=== PATIENT | female | born 1935 | race Caucasian/White ===

== ENCOUNTER 2016-06-10 16:12 | Inpatient (IN) | payer MEDICARE, OTHER ==
[~2016-06-10] VITALS: Ht 152.4 cm; Wt 66.5 kg
--- NOTE | ~2016-06-10 | OR ---
ADMIT: 06/25/2016 RM/LOC: 531 [facility] MR#: [id number] [facility]#: [id number] [address] [address] NELSON BONILLA [address] [place] [address] Operative/Delivery Room Report SEX: F AGE: 81 : 1935 SURGERY DATE: 06/25/2016 SURGEON: Jason Young MD PREOPERATIVE DIAGNOSIS: Right knee degenerative joint disease. POSTOPERATIVE DIAGNOSIS: Right knee degenerative joint disease. PROCEDURE PERFORMED: Right knee total knee arthroplasty with a Flaquito and Flaquito system, size 3 posterior stabilized femoral component, size 2.5 tibial tray, 8 mm tibial insert, and size 32 patellar button. PHARMACY COORDINATOR: 1. Chip Schaefer PA-C. 2. MARYELLEN Muller. ANESTHESIA: Spinal. ESTIMATED BLOOD LOSS: Minimal. FLUIDS: Per anesthetic record. COMPLICATIONS: No complications. DRAIN: One drain. TOURNIQUET TIME: 48 minutes. CONDITION: The patient returned to the recovery room in fair condition. INDICATION: The patient has been having right knee pain refractory to nonoperative treatment due to DJD of her knee. She desired total knee arthroplasty. She understood the risks and benefits of the procedure and desire to proceed. DESCRIPTION OF THE PROCEDURE: The patient was taken to the OR, transferred to the OR table with spinal placed. She was laid in the supine position. All bony prominences were well-padded. Tourniquet was applied to right lower extremity. Right lower extremity was prepped and draped in the usual sterile fashion. It was exsanguinated. Tourniquet inflated to 350 mmHg. An anterior incision was made starting above the patella and carried down to the medial aspect of the tibial tubercle through the skin and subcutaneous tissue with a skin knife. Medial arthrotomy was then performed with a #10 blade. The patella was everted. Knee flexed. The ACL, PCL, medial and lateral menisci excised. A step drill was then used to open the intramedullary canal of the femur. I placed an IM alignment guide with the distal femoral cutting block down in the intramedullary canal of the femur set at 11 mm of resection, 5 degrees of valgus, cut and pinned it to the anterior aspect of the distal femur. I cut the distal femur using an oscillating saw. I removed the cutting block and ADMIT: 06/25/2016 RM/LOC: 531 [facility] MR#: [id number] [address] [address] NELSON BONILLA [address] [place] [address] Operative/Delivery Room Report SEX: F AGE: 81 : 1935 then sized the femur to 3. I placed a size 3 four-in-one cutting block on the distal aspect of the femur in 3 degrees of external rotation, made the 4 appropriate cuts using an oscillating saw. I removed this cutting block, placed the box cutting jig on the distal aspect of the femur. I cut the box of the distal femur using a reciprocating saw. The proximal tibia was then cut perpendicular to the long axis of the tibial shaft using the proximal tibial cutting guide and oscillating saw. The posterior aspect of the patella was cut, flushed with the posterior aspects of the quadriceps and patella tendons using the patella cutting saw. This was sized to a 32 and step drilled with the guide. Trial components were then placed. A size 2.5 tibial tray with 8 mm insert gave excellent range of motion and stability to patellar tracking. Thus, the trial components were then removed. Knee was thoroughly irrigated with bacitracin solution and dried. Knee was thoroughly injected with an Exparel-like solution. I then cemented the tibia, patella, and femoral components into place removing all extraneous cement as it dried. I then impacted the 8 mm insert into the tibial tray and ran the knee through range of motion. She had full extension and 130 degrees of flexion. The patella tracked nicely and the knee was stable. Wounds were thoroughly irrigated with bacitracin solution. One deep drain was then placed. Medial arthrotomy was closed using #1 Vicryl. Subcutaneous tissue was closed using 2-0 Vicryl. Skin closed using vidya. Wounds were washed, dried, and dressed with sterile Adaptic, 4x4s, ABD, Webril, and German wrap with ice pad placed on top of the German wrap. The patient's drapes were removed. Tourniquet let down. She was transferred back to recovery room in fair condition. Jason Young MD/ sharon JOB #: [id number] CC: Jason Young MD, Attending Physician Gentry Blue MD, Family Physician
[~2016-06-10 16:12] MED LIST changes: -MIRALAX PACKET17 GM PO; -SENOKOT S1 TAB PO; -THERAPEUTIC MUL1 TAB PO; -TYLENOL DPS325 MG PO
--- NOTE | 2016-07-02 15:54 | HP ---
ADMIT: 06/25/2016 RM/LOC: 531 [facility] MR#: [id number] [address] [address] NELSON BONILLA [address] [place] [id number] Pre-OP History and Physical SEX: F AGE: 81 : 1935 CORRECTED: 06/26/2016 1447 AJ DATE OF SERVICE: CHIEF COMPLAINT: Right knee pain. HISTORY OF PRESENT ILLNESS: The patient is an 81-year-old white female with right knee DJD. She has not been helped with cortisone shots, medications, etc. She desires total knee arthroplasty. PAST MEDICAL HISTORY: Significant for GERD. PAST SURGICAL HISTORY: She has had previous left knee replacement, gastric bypass. MEDICATIONS: 1. Aspirin. 2. Fish oil. 3. Multivitamin. ALLERGIES: PENICILLIN. SOCIAL HISTORY: Does not smoke or regularly drink alcohol. PHYSICAL EXAMINATION: HEENT: Normocephalic, atraumatic. CV: Regular rate and rhythm. LUNGS: Benign. ABDOMEN: Benign. NEUROLOGIC: Awake, alert, and oriented x3. MUSCULOSKELETAL: Right knee short a couple degrees of full extension, flexes 130 degrees. Tender over the medial joint line. No ligamentous laxity. ADMIT: 06/25/2016 RM/LOC: 531 [facility] MR#: [id number] [address] [place] [phone] NELSON BONILLA [address] [place] [address] Pre-OP History and Physical SEX: F AGE: 81 : 1935 IMAGING DATA: X-rays show right knee DJD. ASSESSMENT AND PLAN: Right knee degenerative joint disease. At this point in time, we will plan right total knee arthroplasty. The patient understands the risks and benefits of the surgical intervention, which include, but not limited to, infection, DVT, arthrofibrosis, neurovascular injury, early loosening, , etc, and desires to proceed. She will see a medical doctor, Dr. Blue, for preoperative medical clearance and follow postoperatively in the hospital for anticoagulation and any medical issues that may arise. Jason Young MD/ sharon JOB #: [id number] CC: Jason Young MD, Attending Physician Gentry Blue MD, Family Physician CORRECTED: 06/26/2016 1447 AJF
--- NOTE | 2016-07-08 11:33 | CO ---
ADMIT: 06/25/2016 RM/LOC: [facility] MR#: [id number] ACC#: [id number] [address] [address] NELSON BONILLA [address] [place] [address] Consultation Report SEX: F AGE: 81 : 1935 DATE OF CONSULTATION: 06/10/2016 ATTENDING PHYSICIAN: Jason Young MD CONSULTING PHYSICIAN: Gentry Blue MD HISTORY OF PRESENT ILLNESS: This 81-year-old female is being seen for a preoperative examination for Dr. Young for a right total knee. The patient has had increasing pain over the last number of months and has decided to proceed with total knee on the right. She has had a previous total knee on the left. The patient has had a history of osteoarthritis in the past and has had increasing pain. PREVIOUS MEDICAL HISTORY: Generally, her health has been good. SOCIAL HISTORY: The patient has never smoked. She is . She works part- time at [employer]. Drinks no alcohol. PAST SURGICAL HISTORY: Includes a total knee, cataract surgery, appendectomy, cholecystectomy, total knee replacement on the left knee, and hiatal herniorrhaphy. PAST MEDICAL HISTORY: Includes osteopenia, allergic rhinitis, hypercholesterolemia, and hypertension. MEDICATIONS: Include: 1. Tramadol. 2. She also has been on aspirin. ALLERGIES: PENICILLIN. FAMILY HISTORY: Includes diabetes and also one daughter has breast cancer as in a maternal aunt. REVIEW OF SYSTEMS: HEENT: The patient wears glasses. She has a history of allergic rhinitis. CARDIORESPIRATORY: The patient again has never smoked. No history of pneumonia, chest pains, myocardial infarctions, or CVAs. GI: No nausea, vomiting, constipation, bloody stools, or diarrhea. : No hematuria or dysuria. METABOLIC/ENDOCRINE. No history of thyroid disease. PHYSICAL EXAMINATION: VITAL SIGNS: Blood pressure is 122/68, temperature 98.1, pulse is 68 and regular, and respirations 16. Weight 129 pounds, BMI is 25.19. GENERAL: The patient is a well-nourished and well-developed female, in no acute distress. She is alert, cooperative, and oriented x3. HEENT: Head - normocephalic without exostoses. SARANYA. Throat within normal limits. ADMIT: 06/25/2016 RM/LOC: [facility] MR#: [id number] [address] [address] NELSON BONILLA [address] [place] [address] Consultation Report SEX: F AGE: 81 : 1935 NECK: Neck veins not distended. Thyroid not enlarged. CHEST: Clear to percussion and auscultation. HEART: Regular rhythm with no murmur heard. No clinical evidence of cardiomegaly. ABDOMEN: Soft, nontender. Liver is not enlarged. Spleen is not palpable. No abnormal masses are palpated. Femoral pulses are strong and equal bilaterally. GENITALIA: Deferred. EXTREMITIES: There are no effusions of the knee. There is mild tenderness of both knees. No edema. Pulses are equal bilaterally. ASSESSMENT: 1. Osteoarthritis. 2. Penicillin allergy. 3. Allergic rhinitis. I see no contraindication to surgery. Gentry Blue MD/ aronl JOB #: [id number] CC: Jason Young MD, Attending Physician Gentry Blue MD, Family Physician
[2016-07-12] MEDS ORDERED: THERAPEUTIC MUL1 TAB PO (08:54)
[2016-07-12] MEDS ORDERED: CALTRATE-600 W600 MG PO (08:54)
[2016-07-12] MEDS ORDERED: SENOKOT S1 TAB PO (08:54)
[2016-07-12] MEDS ORDERED: MIRALAX PACKET17 GM PO (08:54)
[2016-07-12] MEDS ORDERED: OMEGA-3 DPS1000 MG PO (08:54)
[2016-07-12] MEDS ORDERED: TYLENOL DPS325 MG PO (08:55)
--- NOTE | 2016-07-16 15:27 | DS ---
ADMIT: 06/25/2016 RM/LOC: [address] [place] [address] MR#: [id number] [address] [place] [phone] NELSON BONILLA [address] [place] [address] General Discharge Summary SEX: F AGE: 81 : 1935 ADMISSION DATE: 06/25/2016 DISCHARGE DATE: 06/28/2016 REASON FOR ADMISSION: Elective right total knee arthroplasty after failing conservative care. PREOPERATIVE DIAGNOSIS: Right knee degenerative joint disease. POSTOPERATIVE DIAGNOSIS: Right knee degenerative joint disease. PROCEDURE PERFORMED: Right total knee arthroplasty. SURGEON: Jason Young MD. ASSISTANTS: 1. Chip Schaefer PA-C. 2. Maco Marrero PA-C. ANESTHESIA: Spinal. ESTIMATED BLOOD LOSS: Minimal. COMPLICATIONS: No complications. ACTIVE MEDICAL PROBLEMS: History significant for gastroesophageal reflux disease. HOSPITAL COURSE: The patient was admitted on 06/25/2016, for elective right total knee arthroplasty, done successfully without any complications by Dr. Jason Young. The patient tolerated the procedure well. Postoperatively, she did well with pain control. Her Hemovac drain tube came out over the 1st night and the drain site was covered by the next day on postop day #1. She did suffer from some mild acute blood-loss anemia. Her hemoglobin dropped to 9.7 on 06/27/2016, but she remained hemodynamically stable and did not require blood transfusion. By postoperative day #3, she was doing well with physical therapy. She was safe and ready for discharge to a half-way facility with plans for outpatient physical therapy. DISCHARGE MEDICATIONS: 1. Caltrate 600 mg daily. ADMIT: 06/25/2016 RM/LOC: 531 [facility] MR#: [id number] [address] [place] [phone] NELSON BONILLA [address] [place] [address] General Discharge Summary SEX: F AGE: 81 : 1935 2. MiraLax 17 g daily. 3. Deforest-3, 1000 mg daily. 4. Senokot 1 tablet twice a day. 5. Tylenol 325 mg two tablets 4 times a day. 6. Ultram 50 mg one to two tablets four times a day. 7. Xarelto 10 mg every 24 hours. DISCHARGE INSTRUCTIONS: The patient was discharged to a half-way facility with plans for outpatient physical therapy per total knee arthroplasty protocol. Follow up in the orthopedic office in 2 weeks for wound check, in 6 weeks with x-ray and follow up with primary care as directed. MARYELLEN Cedeno / Jason Young MD / sharon JOB #: [id number] CC: Jason Young MD, Attending Physician Gentry Blue MD, Family Physician
== END 2016-06-28 13:12 | DRG 470 ==
LOC: 5MS 06-25 11:23 → WOR 06-25 11:23 → 5MS 06-25 16:17
PROVIDERS: ADMIT Orthopaedic Surgery
PROC: 0SRC0J9 Replacement of Right Knee Joint with Synthetic Substitute, Cemented, Open Approach (ICD-10-PCS; principal; 2016-06-25)
DX: M17.11 Unilateral primary osteoarthritis, right knee (principal); D62 Acute posthemorrhagic anemia; K21.9 Gastro-esophageal reflux disease without esophagitis; J30.9 Allergic rhinitis, unspecified; Z96.652 Presence of left artificial knee joint; Z98.84 Bariatric surgery status; Z79.82 Long term (current) use of aspirin

== ENCOUNTER → 2016-06-10 | Outpatient (CLI) | payer MEDICARE, OTHER ==
[~2016-06-10] MED LIST: ADVIL DPS200 MG PO; ASA CHILDREN'S81 MG PO; CALTRATE-600 W600 MG PO; MIRALAX PACKET17 GM PO; MULTIPLE VITAM1 EACH PO; NORCO 5-325 TA1 EACH PO; OMEGA-3 DPS1000 MG PO; SENOKOT S1 TAB PO; THERAPEUTIC MUL1 TAB PO; TYLENOL DPS325 MG PO
== END | disposition home or self-care (01) ==
LOC: PTH.S 08:07
DX: Z01.812 Encounter for preprocedural laboratory examination (principal)

== ENCOUNTER 2016-06-28 13:27 | Inpatient (IN) | payer MEDICARE, OTHER ==
[2016-07-12] MEDS ORDERED: CALTRATE-600 W600 MG PO (08:54)
[2016-07-12] MEDS ORDERED: SENOKOT S1 TAB PO (08:54)
[2016-07-12] MEDS ORDERED: MIRALAX PACKET17 GM PO (08:54)
[2016-07-12] MEDS ORDERED: THERAPEUTIC MUL1 TAB PO (08:54)
[2016-07-12] MEDS ORDERED: OMEGA-3 DPS1000 MG PO (08:54)
[2016-07-12] MEDS ORDERED: TYLENOL DPS325 MG PO (08:55)
== END 2016-07-11 11:45 | disposition home or self-care (01) | DRG 560 ==
DX: Z47.1 Aftercare following joint replacement surgery (principal); D62 Acute posthemorrhagic anemia; I10 Essential (primary) hypertension; Z96.653 Presence of artificial knee joint, bilateral; K21.9 Gastro-esophageal reflux disease without esophagitis; M85.80 Other specified disorders of bone density and structure, unspecified site; J30.9 Allergic rhinitis, unspecified; E78.00 Pure hypercholesterolemia, unspecified; Z79.82 Long term (current) use of aspirin; Z98.84 Bariatric surgery status

== ENCOUNTER 2016-07-28 08:20 | Emergency (ER) | payer MEDICARE, OTHER ==
[~2016-07-28 08:20] MED LIST changes: +MIRALAX PACKET17 GM PO; +SENOKOT S1 TAB PO; +THERAPEUTIC MUL1 TAB PO; +TYLENOL DPS325 MG PO
--- NOTE | 2016-07-29 10:41 | ER ---
ADMIT: 07/28/2016 RM/LOC: [place] [facility]#: [id number] [address] [address] ERICKJOSE ANTONIONELSON [address] [place] [address] Emergency Room Report SEX: F AGE: 81 : 1935 DATE: 07/28/2016 ADDENDUM: An 81-year-old white female coming with nose bleed. She is not on aspirin, just fish oil. This was cauterized. She is to follow up with Dr. Sevilla this week. CONDITION ON DISCHARGE: Good. Colton Carbajal MD/ sharon JOB #: [id number] CC: Colton Carbajal MD, Attending Physician
== END 2016-07-28 10:37 | disposition home or self-care (01) ==
LOC: ER 08:20
PROC: 0W3Q7ZZ Control Bleeding in Respiratory Tract, Via Natural or Artificial Opening (ICD-10-PCS; principal; 2016-07-28)
DX: R04.0 Epistaxis (principal); Z88.0 Allergy status to penicillin; Z79.899 Other long term (current) drug therapy